=== PATIENT | female | born 1950 | race Caucasian/White ===

== ENCOUNTER 2023-09-07 13:04 | Emergency (ER) | payer OTHER, MEDICARE ==
[~2023-09-07] VITALS: Ht 157.5 cm; Wt 85.0 kg
[2023-09-07] MEDS ORDERED: ACET500T58 PO (15:50)
[2023-09-07 15:58] VITALS: BP 122/83; PULSE 60; RESP 18; TEMP 98.1; O2SAT 96
== END 2023-09-07 16:07 | disposition home or self-care (01) ==
LOC: ER 13:04
DX: M17.11 Unilateral primary osteoarthritis, right knee (principal)
CPT/HCPCS: 29505; 73562

== ENCOUNTER → 2023-11-20 | Outpatient (CLI) | payer MEDICARE, OTHER ==
[~2023-11-20] MED LIST: ACET500T58 PO
[2023-11-20 07:22] LABS: Urine Bacteria None Seen /hpf (None Seen)
[2023-11-20 07:49] LABS: Creatinine, Urine 72.53 mg/dL (30.0-125.0)
[2023-11-20 07:54] LABS: Alanine Aminotransferase 18 U/L (7-40); Alkaline Phosphatase 99 U/L (46-116); Anion Gap 7 (5-15); Aspartate Aminotransferase 10 U/L (13-40); BUN/Creatinine Ratio 14.9 (10.0-20.0); Blood Urea Nitrogen 13 mg/dL (9-23); Calcium 9.6 mg/dL (8.7-10.4); Carbon Dioxide 27 mmol/L (20-30); Chloride 108 mmol/L (98-107); Glucose 161 mg/dL (74-106); LDL Cholesterol 101 mg/dL (< 100); Potassium 4.5 mmol/L (3.5-5.1); Sodium 142 mmol/L (136-145); Triglycerides 130 mg/dL (< 150)
[2023-11-20 07:55] LABS: Albumin 4.3 g/dL (3.2-4.8); Bilirubin, Total 1.6 mg/dL (0.2-1.0); Cholesterol 173 mg/dL (< 200); Free T4 (Free Thyroxine) 0.89 ng/dL (0.89-1.76); HDL Cholesterol 60 mg/dL (40-59); Total Protein 6.7 g/dL (5.7-8.2)
[2023-11-20 08:03] LABS: Basophils # (auto) 0.1 10 ^3/uL (0-0.2); Basophils % (auto) 1.2 % (0.0-2.0); Eosinophils # (auto) 0.2 10 ^3/uL (0-0.8); Eosinophils % (auto) 2.6 % (0.0-7.0); Hematocrit 41.1 % (36.0-46.0); Hemoglobin 14.3 g/dL (12.2-16.2); Lymphocytes # (auto) 1.7 10 ^3/uL (0.4-5.4); Lymphocytes % (auto) 26.6 % (10.0-50.0); Mean Corpuscular Hemoglobin 31.9 pg (28.0-32.0); Mean Corpuscular Hgb Conc. 34.7 g/dL (32.0-36.0); Mean Corpuscular Volume 91.9 fL (80.0-100.0); Monocytes # (auto) 0.6 10 ^3/uL (0-1.3); Monocytes % (auto) 8.7 % (0.0-12.0); Neutrophils # (auto) 3.9 10 ^3/uL (1.6-8.6); Neutrophils % (auto) 60.9 % (37.0-80.0); Red Blood Cells 4.48 10^6/uL (4.0-5.20); Red Cell Distribution Width 13.4 % (11.8-14.3); White Blood Cell 6.4 10^3/uL (4.4-10.8)
[2023-11-20 08:16] LABS: Urine Blood Negative /uL (Negative); Urine Clarity Clear (Clear); Urine Color Light-Yellow (Yellow); Urine Mucus FEW (None Seen); Urine Protein, UAD Negative (Negative); Urine Specific Gravity 1.018 (1.001-1.035); Urine Urobilinogen Normal (Negative); Urine WBC 2 /hpf (0 - 5)
[2023-11-20 08:45] LABS: Erythrocyte Sedimentation Rate 9 mm/hr (0-20)
== END | disposition home or self-care (01) ==
LOC: LAB 06:57
PROVIDERS: ATTEND Internal Medicine
DX: I10 Essential (primary) hypertension (principal); E11.9 Type 2 diabetes mellitus without complications
CPT/HCPCS: 36415; 80053; 80061; 81001; 82043; 82570; 82607; 83036; 84439; 84443; 85025; 85652